=== PATIENT | female | born 1980 | race Two or more races ===

== ENCOUNTER → 2020-07-26 | Outpatient (CLI) | payer BC, OTHER ==
[2020-07-26 15:28] LABS: BASOPHILS % (AUTO) 0 % (0-1); EOSINOPHILS % (AUTO) 2 % (1-7); LYMPHOCYTES % (AUTO) 29 % (22-44); MEAN CORPUSCULAR HEMOGLOBIN 28.6 pg (27.0-34.8); MEAN CORPUSCULAR HGB CONC 33.3 g/dL (32.4-35.8); MEAN PLATELET VOLUME 7.5 fL (7.4-10.4); MONOCYTES % (AUTO) 7 % (2-9); NEUTROPHILS % (AUTO) 62 % (42-75); PLATELET COUNT 333 x10^3/uL (130-400); RED BLOOD COUNT 4.76 x10^6/uL (3.82-5.3); RED CELL DISTRIBUTION WIDTH 13.5 % (9.6-15.2)
[2020-07-26 15:29] LABS: MD NO
[2020-07-26 15:37] LABS: MICROSCOPIC NOT IND
[2020-07-26 15:40] LABS: ALANINE AMINOTRANSFERASE 54 U/L (12-78); ALBUMIN 3.5 g/dL (3.4-5.0); ANION GAP 4 mmol/L (5-15); CALCIUM 8.8 mg/dL (8.5-10.1); CHLORIDE 107 mmol/L (98-107); CREATININE 0.72 mg/dL (0.55-1.02)
[2020-07-26 15:44] LABS: ALKALINE PHOSPHATASE 100 U/L (45-117); BILIRUBIN,TOTAL 0.2 mg/dL (0.2-1.0); TOTAL PROTEIN 7.3 g/dL (6.4-8.2)
== END | disposition home or self-care (01) ==
LOC: STAR 14:15
PROVIDERS: ATTEND Obstetrics & Gynecology Gynecology
DX: Z01.812 Encounter for preprocedural laboratory examination (principal); Z20.822 Contact with and (suspected) exposure to COVID-19
CPT/HCPCS: 36415; 80053; 81003; 84702; 85025; U0003

== ENCOUNTER 2020-08-01 09:54 | Day surgery (SDC) | payer BC, OTHER ==
[~2020-08-01] VITALS: Ht 154.9 cm; Wt 85.4 kg
[2020-08-01] MEDS ORDERED: CHLORHEXIDINE 15 ML UDC ONE (10:11)
[2020-08-01] MEDS ORDERED: CHLORHEXIDINE 15 ML UDC PO ONE (10:30)
[2020-08-01 11:00] LABS: HCG UR SG 1.027 (1.003-1.030)
[2020-08-01] MEDS ORDERED: LACTATED RINGERS 1,000 ML IV SCH (11:00)
[2020-08-01] MEDS ORDERED: SILVER NITRATE STICK TP ONE (11:13)
[2020-08-01] MEDS ORDERED: BUPIVACAINE/PF 0.25% ONE (11:13)
[2020-08-01] MEDS ORDERED: EPINEPHRINE 1 MG/ML, 1ML ONE (11:14)
[2020-08-01] MEDS ORDERED: FENTANYL PF 100 MCG/2ML ONE ×2 (11:52→13:38)
[2020-08-01] MEDS ORDERED: MIDAZOLAM 1 MG/ML, 2ML ONE (11:52)
[2020-08-01] MEDS ORDERED: DEXAMETHASONE 4 MG/ML, 1ML ONE (12:00)
[2020-08-01] MEDS ORDERED: PROPOFOL 10 MG/ML, 20ML ONE (12:00)
[2020-08-01] MEDS ORDERED: NEOSTIGMINE 1 MG/ML, 10ML ONE (12:00)
[2020-08-01] MEDS ORDERED: ONDANSETRON 2MG/ML, 2ML ONE (12:00)
[2020-08-01] MEDS ORDERED: PHENYLEPHRINE 10 MG/ML ONE (12:00)
[2020-08-01] MEDS ORDERED: CEFAZOLIN 1,000 MG ONE (12:00)
[2020-08-01] MEDS ORDERED: ROCURONIUM 10 MG/ML,10ML ONE (12:00)
[2020-08-01] MEDS ORDERED: GLYCOPYRROLATE 0.2MG/1ML, 5ML ONE (12:00)
[2020-08-01] MEDS ORDERED: hydrALAzine 20 MG/ML, 1ML IV PRN (12:30)
[2020-08-01] MEDS ORDERED: HALOPERIDOL 5 MG/ML IV PRN (12:30)
[2020-08-01] MEDS ORDERED: LABETALOL 5MG/ML, 20ML IV PRN (12:30)
[2020-08-01] MEDS ORDERED: ALBUTEROL SULFATE 2.5 MG/3 ML NPPB PRN (12:30)
[2020-08-01] MEDS ORDERED: HYDROmorphone 1 MG/ML, 1ML INJ IVPush PRN (12:30)
[2020-08-01] MEDS ORDERED: OXYcodone 5 MG/5 ML ORAL.SOL UDC PO PRN (12:30)
[2020-08-01] MEDS ORDERED: ONDANSETRON 2MG/ML, 2ML IVPush PRN (12:30)
[2020-08-01] MEDS ORDERED: FENTANYL PF 100 MCG/2ML IV PRN (12:30)
[2020-08-01] MEDS ORDERED: METOCLOPRAMIDE 5 MG/ML, 2ML IVPush PRN (12:30)
[2020-08-01] MEDS ORDERED: ACETAMINOPHEN 325 MG TABLET PO PRN (12:30)
[2020-08-01] MEDS ORDERED: DIPHENHYDRAMINE 50 MG/ML, 1ML IVPush PRN (12:30)
[2020-08-01] MEDS ORDERED: EPHEDRINE 50 MG/ML, 1ML IVPush PRN (12:30)
[2020-08-01] MEDS ORDERED: PROMETHAZINE 25 MG/ML, 1ML IVPush PRN (12:30)
[2020-08-01] MEDS ORDERED: DIAZEPAM 5 MG/ML, 2ML IVPush PRN (12:30)
[2020-08-01] MEDS ORDERED: KETOROLAC 30 MG/1 ML IV PRN (12:30)
[2020-08-01] MEDS ORDERED: MEPERIDINE/PF 25MG/0.5ML IVPush PRN (12:30)
[2020-08-01] MEDS ORDERED: METOPROLOL 1 MG/ML, 5ML IV PRN (12:30)
[2020-08-01] MEDS ORDERED: OXYcodone 5 MG/5 ML ORAL.SOL UDC ONE (13:38)
[2020-08-01] MEDS ORDERED: KETOROLAC 30 MG/1 ML ONE (13:46)
== END 2020-08-01 16:26 | disposition home or self-care (01) ==
LOC: OUT 09:54
PROVIDERS: ATTEND Obstetrics & Gynecology Gynecology
DX: Z30.2 Encounter for sterilization (principal); Z30.432 Encounter for removal of intrauterine contraceptive device; N73.6 Female pelvic peritoneal adhesions (postinfective); N83.8 Other noninflammatory disorders of ovary, fallopian tube and broad ligament; Z79.899 Other long term (current) drug therapy
CPT/HCPCS: 36415; 58301; 58670; 81025; 86850; 86900; 88302; J0171; J0690; J1100; J1885; J2250; J2370; J2405; J2704; J2710; J3010; J7120